=== PATIENT | female | born 1945 | race Caucasian/White ===

== ENCOUNTER 2019-07-19 19:11 | Emergency (ER) | payer OTHER, MEDICARE ==
[~2019-07-19 19:11] MED LIST: Caclcium Chloride 10% INJ SYR IV ONE; EPINEPHrine 1 MG/10 ML SYR ONE; SODIUM CHL 0.9% 1000 ML BAG ONE
--- NOTE | 2019-07-19 19:39 | EDPHYS ---
Physician Documentation [facility] Name: Kerry Carlos Age: 74 yrs Sex: Female : 1945 Arrival Date: 07/19/2019 Time: 19:12 Bed 3 Private MD: ED Physician Frankie Peralta HPI: 07/19 19:28 This 74 yrs old Female presents to ER via Unassigned with complaints of CPR. giovany 19:28 Preceding the arrest, the patient collapsed. The arrest occurred at home. Pre-hospital giovany course: Bystanders at the scene did not perform CPR. EMS care prior to arrival: initiation of ACLS, intubation 10 minutes elapsed prior to ACLS. It is unknown whether or not the patient has had similar symptoms in the past. Historical: - Allergies: 20:30 Codeine; rv - PMHx: 20:30 Diabetes - IDDM; GERD; Hypertension; CAD; WHITE'S ESOPHAGUS; rv - PSHx: 20:30 PACEMAKER; Knee surgery; Hysterectomy; Appendectomy; rv - Immunization history:: Adult Immunizations unknown. - Coronavirus screen:: The patient has NOT traveled to [place], [place], or [place] in the past 14 days. Proceed with normal triage process as indicated. The patient has NOT had contact with known/suspected case of Coronavirus? Proceed with normal triage procedures. - Family history:: not pertinent. - Social history:: Smoking status: unknown. - Ebola Screening: : No symptoms or risks identified at this time. ROS: 19:28 Unable to obtain ROS due to patient is on ventilator, intubated, active cpr, lucus. giovany Exam: 19:28 Eyes: Pupils: are fixed and dilated. giovany 19:28 ENT: Mouth: vomit, ett in place,equal bs. Vital Signs: 19:07 rv 19:07 PULSELESS AND UNRESPONSIVE rv MDM: 19:28 Patient medically screened. giovany 19:28 Data reviewed: vital signs, nurses notes. giovany Administered Medications: 19:10 Drug: EPINEPHrine 0.1mg/mL 1:10,000 1 mg Route: IVP; Site: left forearm; rv 19:10 Drug: Sodium Bicarbonate 1 amp Route: IVP; Site: left forearm; rv 19:13 Drug: EPINEPHrine 0.1mg/mL 1:10,000 1 mg Route: IVP; Site: left forearm; rv 19:14 Drug: Sodium Bicarbonate 1 amp Route: IVP; Site: right femoral; rv 19:16 Drug: EPINEPHrine 0.1mg/mL 1:10,000 1 mg Route: IVP; Site: right femoral; rv 19:17 Drug: Calcium Chloride 1 grams Route: IVP; Site: right femoral; rv 19:19 Drug: EPINEPHrine 0.1mg/mL 1:10,000 1 mg Route: IVP; Site: right femoral; rv 19:20 Drug: Sodium Bicarbonate 1 amp Route: IVP; Site: right femoral; rv 19:22 Drug: EPINEPHrine 0.1mg/mL 1:10,000 1 mg Route: IVP; Site: right femoral; rv 19:25 Drug: EPINEPHrine 0.1mg/mL 1:10,000 1 mg Route: IVP; Site: right femoral; rv 19:26 Drug: Calcium Chloride 1 grams Route: IVP; Site: right femoral; rv Disposition: Patient pronounced on 07/19/19 19:27 by Frankie Peralta. Impression: Respiratory arrest, Cardiac arrest. - Released to Home. Signatures: Frankie Peralta MD MD cha Vicente, Ronaldo RN RN rv Corrections: (The following items were deleted from the chart) 07/20 01:46 07/19 19:36 07/19/2019 19:36 Patient pronounced on 07/19/2019 at 19:27 by amanda Peralta. Impression: Respiratory arrest; Cardiac arrest. Released to Home. giovany
--- NOTE | 2019-07-19 19:39 | ER ---
Nurse's Notes [facility] Name: Kerry Carlos Age: 74 yrs Sex: Female : 1945 Arrival Date: 07/19/2019 Time: 19:12 Bed 3 Private MD: Diagnosis: Respiratory arrest;Cardiac arrest Presentation: 07/19 19:07 Presenting complaint: EMS states: SPOUSE WAS IN THE SHOWER AND GOT OUT, FOUND THE rv PATIENT ON THE FLOOR UNCONSCIOUS AND UNRESPONSIVE. 19:35 Care prior to arrival: Oral intubation, CPR via thumper performed by EMS and is still rv in progress. Compressions began prior to arrival. 19:35 Method Of Arrival: EMS: [facility] rv 19:35 Acuity: TRAN 1 rv 20:31 Transition of care: patient was not received from another setting of care. Onset of rv symptoms was July 19, 2019 at 18:30. Risk Assessment: Do you want to hurt yourself or someone else? Other: UNRESPONSIVE. Initial Sepsis Screen: Does the patient meet any 2 criteria? No. Patient's initial sepsis screen is negative. Does the patient have a suspected source of infection? No. Patient's initial sepsis screen is negative. Triage Assessment: 20:31 General: Behavior is unresponsive. Pain: Unable to use pain scale. Patient is rv unresponsive. Historical: - Allergies: 20:30 Codeine; rv - PMHx: 20:30 Diabetes - IDDM; GERD; Hypertension; CAD; WHITE'S ESOPHAGUS; rv - PSHx: 20:30 PACEMAKER; Knee surgery; Hysterectomy; Appendectomy; rv - Immunization history:: Adult Immunizations unknown. - Coronavirus screen:: The patient has NOT traveled to [place], [place], or [place] in the past 14 days. Proceed with normal triage process as indicated. The patient has NOT had contact with known/suspected case of Coronavirus? Proceed with normal triage procedures. - Family history:: not pertinent. - Social history:: Smoking status: unknown. - Ebola Screening: : No symptoms or risks identified at this time. Screenin:30 Abuse screen: UNRESPONSIVE. Nutritional screening: UNRESPONSIVE. Tuberculosis rv screening: UNRESPONSIVE. Fall Risk None identified. Assessment: 19:07 CPR assessment: unresponsive, no respiratory effort, intubated, Ambu ventilation, pale, rv pulses absent w/ compressions. Cardiac rhythm is PEA. 19:07 General: Appears WITH IO ACCESS IN THE RIGHT LOWER LEG. WITH ET TUBE IN PLACE, BY EMS, rv SIZE 7.5. WITH BRACELET STILL ON THE RIGHT WRIST, WRISTWATCH ON THE RIGHT. EARING STILL ON THE RIGHT EAR, ANOTHER CAME OFF FROM THE LEFT EAR. NOTICED VOMITUS, APPEARS TO BE CASHEW NUTS, COMING OUT FROM THE MOUTH.. Behavior is unresponsive. Neuro: Level of Consciousness is unresponsive. EENT:. Cardiovascular: Rhythm is PEA. Respiratory: Respiratory effort is NO RESPIRATORY EFFORT. GI: Abdomen is round non-distended. Derm: Skin is pale. 19:07 Reassessment: PATIENT IS UNRESPONSIVE UPON ARRIVAL. THUMPER REMOVED AND CONTINUED CHEST rv COMPRESSION MANUALLY. ACCESSED IV ON THE LEFT FOREARM. PLACEMENT OF ET TUBE VERIFIED BY DR JONES VIA AUSCULTATION. NGT INSERTED BY MORA Ivan VIA LEFT NARES AND HOOKED TO CONTINUOUS SUCTIONING. EPINEPHRINE GIVEN EVERY THREE MINUTES AND PULSE CHECK DONE EVERY TWO MINUTES. 19:12 Cardiovascular: Pulses NO PULSE. rv 19:14 Cardiovascular: Pulses NO PULSE Rhythm is PEA. rv 19:16 Cardiovascular: Pulses NO PULSE. Rhythm is PEA. rv 19:18 Cardiovascular: Pulses NO PULSE. Rhythm is PEA. rv 19:20 Cardiovascular: Pulses NO PULSE. Rhythm is PEA. rv 19:22 Cardiovascular: Pulses NO PULSE. Rhythm is PEA. rv 19:24 Cardiovascular: Pulses NO PULSE. Rhythm is PEA. rv 19:26 Cardiovascular: Pulses NO PULSE. Rhythm is PEA. rv 19:27 Cardiovascular: Pulses NO PULSE. Rhythm is PEA. rv 19:27 Reassessment: DR JONES PRONOUNCED TIME OF AT 1927. rv 23:34 Reassessment: home came and left because the family decided to hold the rv patient's body in the room while waiting for the other son. the spouse talked to the [facility] and they have decided to go ahead with the organ donation. awaiting for the [facility] to greens picker the patient. 07/20 01:45 Reassessment: mr [place] of [facility] came to take the patient's body. rv Vital Signs: 07/19 19:07 rv 19:07 PULSELESS AND UNRESPONSIVE rv ED Course: 19:07 Patient placed in the treatment room, on a stretcher, on oxygen, on library monitor, on rv pulse oximetry. 19:10 Inserted saline lock: 20 gauge in left forearm, using aseptic technique. rv 19:10 Patient has correct armband on for positive identification. rv 19:12 Patient arrived in ED. tw2 19:12 Assisted provider with central line placement. Set up central line tray. Triple lumen rv line placed in right femoral. Line placed by Frankie Jones MD Placement verified by blood return, Dressed with Tegaderm. 19:15 NGT: inserted 16 Fr. via left nare. verified placement of air over stomach, verified rv return of gastric contents, to continuous suction. Returned gastric contents. 19:24 Defibrillated with 200 joules. rv 19:28 Frankie Jones MD is Attending Physician. giovany 19:34 Frankie Jones MD is Pronouncing Provider. giovany 19:35 Lonny Grubbs RN is Primary Nurse. rv 19:37 Triage completed. rv Administered Medications: 19:10 Drug: EPINEPHrine 0.1mg/mL 1:10,000 1 mg Route: IVP; Site: left forearm; rv 19:10 Drug: Sodium Bicarbonate 1 amp Route: IVP; Site: left forearm; rv 19:13 Drug: EPINEPHrine 0.1mg/mL 1:10,000 1 mg Route: IVP; Site: left forearm; rv 19:14 Drug: Sodium Bicarbonate 1 amp Route: IVP; Site: right femoral; rv 19:16 Drug: EPINEPHrine 0.1mg/mL 1:10,000 1 mg Route: IVP; Site: right femoral; rv 19:17 Drug: Calcium Chloride 1 grams Route: IVP; Site: right femoral; rv 19:19 Drug: EPINEPHrine 0.1mg/mL 1:10,000 1 mg Route: IVP; Site: right femoral; rv 19:20 Drug: Sodium Bicarbonate 1 amp Route: IVP; Site: right femoral; rv 19:22 Drug: EPINEPHrine 0.1mg/mL 1:10,000 1 mg Route: IVP; Site: right femoral; rv 19:25 Drug: EPINEPHrine 0.1mg/mL 1:10,000 1 mg Route: IVP; Site: right femoral; rv 19:26 Drug: Calcium Chloride 1 grams Route: IVP; Site: right femoral; rv Outcome: 19:27 Outcome Patient rv 07/20 01:46 Discharged to [facility] rv Condition: 01:46 Discharge instructions given to family. rv 01:46 Patient left the ED. rv Signatures: Frankie Jones MD MD cha Wise, Tara, RN RN tw2 Lonny Grubbs, RN RN rv Corrections: (The following items were deleted from the chart) 07/19 19:38 19:35 Presenting complaint: EMS states: SPOUSE WAS IN THE SHOWER AND GOT OUT, FOUND THE rv PATIENT ON THE FLOOR UNCONSCIOUS AND UNRESPONSIVE. rv 19:38 19:38 PULSELESS AND UNRESPONSIVE; rv rv 20:05 19:57 Reassessment: PATIENT IS UNRESPONSIVE UPON ARRIVAL. THUMPER REMOVED AND CONTINUED rv CHEST COMPRESSION MANUALLY. ACCESSED IV ON THE LEFT FOREARM. PLACEMENT OF ET TUBE VERIFIED BY DR JONES VIA AUSCULTATION. NGT INSERTED BY MORA F16 VIA LEFT NARES AND HOOKED TO CONTINUOUS SUCTIONING. EPINEPHRINE GIVEN EVERY THREE MINUTES AND PULSE CHECK DONE EVERY TWO MINUTES. rv
== END 2019-07-20 01:46 | disposition expired ==
LOC: ER 19:11
DX: I46.9 Cardiac arrest, cause unspecified (principal); R09.2 Respiratory arrest; Z88.6 Allergy status to analgesic agent; Z95.0 Presence of cardiac pacemaker; I25.10 Atherosclerotic heart disease of native coronary artery without angina pectoris
CPT/HCPCS: 82947; 92950; 92960; 99285; J0171; J7030